=== PATIENT | female | born 1965 | race African-American/Black ===

== ENCOUNTER 2020-02-17 12:38 | Outpatient (REF) | payer MEDICAID, SELFPAY | END 2020-02-17 12:39 | disposition home or self-care (01) | LOC: HO.LAB 12:38 | PROVIDERS: Visit Provider Nurse Practitioner Family | DX: Z20.828 Contact with and (suspected) exposure to other viral communicable diseases (principal); R51.9 Headache, unspecified | CPT/HCPCS: U0003 ==

== ENCOUNTER 2024-08-27 10:36 | Outpatient (REF) | payer MEDICAID, SELFPAY ==
--- OUTSIDE RECORDS SUMMARY | 2024-08-27 11:08 | XMS_ITS ---
Author Organization [facility] Address [address] [place] [address] Care Team Providers Care Frame Maker Name Role Phone Lala Mendoza Primary Care Provider Antonette Cardenas Unavailable [phone] REASON FOR VISIT 2 month f/u Medications Medication SIG (Take, Route, Frequency, Duration) Notes Start Date End Date Status Sertraline HCl 50 MG 1 tablet Orally Onc e a day for 30 day(s) Active Advair Diskus 250-50 MCG/ACT 1 puff Inha lation Twice a day Active amLODIPine Besylate 10 MG 1 tablet Orall y Once a day for 30 day(s) Active Albuterol Sulfate 108 (90 Base) MCG/ACT 1 puff as needed Inhalation every 4 hrs Active Aspirin 81 81 MG 1 tablet Orally Once a day Active Lisinopril-hydroCHLOROthiazi de 20-12.5 MG 1 tablet Orally Once a day for 30 day(s) Active Simvastatin 40 MG 1 tablet in the even ing Orally Once a day for 30 day(s) Active Atorvastatin Calcium 40 MG 1 tablet Oral ly Once a day Active QUEtiapine Fumarate 100 MG 1 tablet at b edtime Orally Once a day Active Metoprolol Tartrate 50 MG 1 tablet with food Orally Twice a day for 30 day(s) Active Gabapentin 300 MG 1 capsule Orally Twi ce a day Active Ergocalciferol 1.25 MG (99848 UT) 1 capsule Orally Active cloNIDine HCl 0.1 MG 1 tablet Orally Thr ee a day Active Social History Tobacco Use: Social History Observation Description Date Details (start date - stop date) Former Smoker NA - NA Tobacco Use/Smoking Question Answer Notes Are you a former smoker How long has it been since you last smoked? 1-5 years Problems Problem Type SNOMED Code ICD Code Onset Dates Problem Status W/U Status Risk Notes Problem Allergic arthritis (59819965) Other specified arthritis, unspecified site (M13.80) Active confirmed Encounters Encounter Location Date Provider Diagnosis Dr Olsen [facility] [address] [place] [address] 04/24/2023 Antonette Olsen Chronic kidney disea se, stage 3a N18.31 ; Essential (primary) hypertension I10 ; Type 2 diabetes mellitus without complications E11.9 ; Unspecified osteoarthritis, unspecified site M19.90 ; Other chest pain R07.89 and Other specified arthritis, unspecified site M13.80 Assessments Encounter Date Diagnosis (ICD Code) Assessment Notes Treatment Notes Treatment Clinical Notes Section Notes 04/24/2023 Chronic kidney disease, stage 3a (ICD-10 - N18.31) GFR 53 ml/min Creatinine 1.3 mg/dl Educated patient on the impotance of controlling bs to preserve kidney function Labs ordered and u/a. Advised low sodium diet, avoid NSAID's, and will continue to monitor 04/24/2023 Essential (primary) hypertension (ICD-10 - I10) Controlled Recommend keeping bp log at home and will continue to monitor 04/24/2023 Type 2 diabetes mellitus without complications (ICD-10 - E11.9) HbA1c 6.5% Labs ordered, and educated patient on the importance of controlling blood sugar. Advised pt to increase physical activity and started pt on Farxiga 10. RTC 1 month 04/24/2023 Unspecified osteoarthritis, unspecified site (ICD-10 - M19.90) Ordered labs r/o rheumatoid arthritis( JUAN; dsDNA, rhumatoid factor, CPR ) 04/24/2023 Other chest pain (ICD-10 - R07.89) Referred to cardio to evaluation 04/24/2023 Other specified arthritis, unspecified site (ICD-10 - M13.80) Plan Of Treatment Treatment Notes Assessment Notes Chronic kidney disease, stage 3a Educated patient on the impotance of controlling bs to preserve kidney function Labs ordered and u/a. Advised low sodium diet, avoid NSAID's, and will continue to monitor Essential (primary) hypertension Recomme nd keeping bp log at home and will continue to monitor Type 2 diabetes mellitus wit hout complications Labs ordered, and educated patient on th e importance of controlling blood sugar. Advised pt to increase physical activity and started pt on Farxiga 10. RTC 1 month Other chest pain Referred to cardio t o evaluation Next Appt Details Follow Up: 4 Weeks, Reason: Progress Notes * EMILIANO LOPEZ LDOB: [birth year] (59 yo F)Acc No.[id number]:04/24/2023 Progress Notes Patient:?EMILIANO LOPEZ Provider:?Antonette Olsen MD :1965???Age:58 Y???Sex:Female D ate:04/24/2023 Address:[address] [place], [place] [id number] Pcp:Lala Mendoza Subjective: * Chief Complaints: * ???1. 2 month f/u. * HPI: ???Constitutional:? 57 y/o female patient present today for follow up. Pt c/o back pain. Pt was in the hospital ([facility]) for 3 days due to chest pain. Pt denies headaches, dizziness, shortness of breath, chest pain, abdominal pain, UTI symptoms or edema. Pt did not have further questions or concerns. 57 y/o female patient present today for follow up. Pt c/o back pain. Pt was in the hospital ([facility]) for 3 days due to chest pain. Pt denies headaches, dizziness, shortness of breath, chest pain, abdominal pain, UTI symptoms or edema. Pt did not have further questions or concerns. * ROS:?General/Constitutional:?Denies?Change in appetite.?Denies?Chills.?Denies?Fatigue.?Denies?Fever.?Denies?Headache.?Denies?L ightheadedness.?Denies?Sleep disturbance.?Denies?Weight gain.?Denies?Weight loss.? * Medical History:?Hypertensio n. * Surgical History:?Blood garcia sfusion 04/01/2020. * Hospitalization/Major Diagno stic Procedure:?[facility] Chest pain 11/23/22. * Social History:?Tobacco Use:?Tobacco Use/Smoking?Are you a?former smoker ?How long has it been since you last smoked??1-5 years * Medications:?Taking Sertrali ne HCl 50 MG Tablet 1 tablet Orally Once a day , Taking Advair Diskus 250-50 MCG/ACT Aerosol Powder Breath Activated 1 puff Inhalation Twice a day , Taking Albuterol Sulfate 108 (90 Base) MCG/ACT Aerosol Powder Breath Activated 1 puff as needed Inhalation every 4 hrs , Taking amLODIPine Besylate 10 MG Tablet 1 tablet Orally Once a day , Taking Aspirin 81 81 MG Tablet Chewable 1 tablet Orally Once a day , Taking cloNIDine HCl 0.1 MG Tablet 1 tablet Orally Three a day , Taking Ergocalciferol 1.25 MG (03693 UT) Capsule 1 capsule Orally , Taking Gabapentin 300 MG Capsule 1 capsule Orally Twice a day , Taking Metoprolol Tartrate 50 MG Tablet 1 tablet with food Orally Twice a day , Taking QUEtiapine Fumarate 100 MG Tablet 1 tablet at bedtime Orally Once a day , Taking Atorvastatin Calcium 40 MG Tablet 1 tablet Orally Once a day , Taking Simvastatin 40 MG Tablet 1 tablet in the evening Orally Once a day , Taking Lisinopril-hydroCHLOROthiazide 20-12.5 MG Tablet 1 tablet Orally Once a day Objective: * Vitals:? * Examination: ???General Examination: ?GENERAL APPEARANCE:?in no acute distress, well developed, well nourished , in no acute distress, well developed, well nourished.?HEAD:?normocephalic, atraumatic , normocephalic, atraumatic.?EYES:?pupils equal, round, reactive to light and accommodation , pupils equal, round, reactive to light and accommodation.?EARS:?normal , normal.?ORAL CAVITY:?mucosa moist , mucosa moist.?THROAT:?clear , clear.?NECK/THYROID:?neck supple, full range of motion, no cervical lymphadenopathy , neck supple, full range of motion, no cervical lymphadenopathy.?SKIN:?no suspicious lesions, warm and dry , no suspicious lesions, warm and dry.?HEART:?no murmurs, regular rate and rhythm, S1, S2 normal , no murmurs, regular rate and rhythm, S1, S2 normal.?LUNGS:?clear to auscultation bilaterally , clear to auscultation bilaterally.?ABDOMEN:?normal, bowel sounds present, soft, nontender, nondistended , normal, bowel sounds present, soft, nontender, nondistended.?EXTREMITIES:?no clubbing, cyanosis, or edema , no clubbing, cyanosis, or edema.?NEUROLOGIC:?nonfocal, motor strength normal upper and lower extremities, sensory exam intact , nonfocal, motor strength normal upper and lower extremities, sensory exam intact.? Assessment: * Assessment: 1.?Chronic kidney disease, s tage 3a - N18.31 (Primary)???Notes :GFR 53 ml/min Creatinine 1.3 mg/dl???2.?Essential (primary) hypertension - I10???Specify :ok???Notes :Controlled???3.?Type 2 diabetes mellitus without complications - E11.9???Notes :HbA1c 6.5%???4.?Unspecified osteoarthritis, unspecified site - M19.90???5.?Other chest pain - R07.89???6.?Other specified arthritis, unspecified site - M13.80??? Plan: * Treatment: 2.?Essential (primary) hyper tension? Notes: Recommend keeping bp log at home and will continue to monitor ?? 3.?Type 2 diabetes mellitus without complications? Notes: Labs ordered, and educated patient on the importance of controlling blood sugar. Advised pt to increase physical activity and started pt on Farxiga 10. RTC 1 month?? 4.?Unspecified osteoarthriti s, unspecified site? Clinical Notes: Ordered labs r/o rheumatoid arthritis( JUAN; dsDNA, rhumatoid factor, CPR ) ?? 5.?Other chest pain? Notes: Referred to cardio to evaluation?? * Procedures:?RENAL US 10/03/2021 IMPRESSION: Unremarkable renal ultrasound. RENAL US 10/03/2021 IMPRESSION: Unremarkable renal ultrasound. ? * Follow Up:?4 Weeks * Billing Information: * Visit Code:? 07436 Office Visit, Est Pt., Level 3. * Procedure Codes:? * Electronic signature of Antonette Olsen MD on 08/27/2024 at 10:08 AM CDT Sign off status: Pending * Provider:?Antonette Olsen MD Date:? 4 Generated for Printi ng/Faxing/eTransmitting on:?08/27/2024 10:08 AM CDT History and Physical Notes * Examination Category Sub-Category Detail Notes Category Not es General Examination GENERAL APPEARANCE: in no ac [place] distress, well developed, well nourished , in no acute distress, well developed, well nourished HEAD: normocephalic, atrau matic , normocephalic, atraumatic EYES: pupils equal, round, reactive to light and accommodation , pupils equal, round, reactive to light and accommodation EARS: normal , normal THROAT: clear , clear NECK/THYROID: neck supple, full ra nge of motion, no cervical lymphadenopathy , neck supple, full range of motion, no cervical lymphadenopathy HEART: no murmurs, regular rate and rhythm, S1, S2 normal , no murmurs, regular rate and rhythm, S1, S2 normal LUNGS: clear to auscultatio n bilaterally , clear to auscultation bilaterally ABDOMEN: normal, bowel sounds present, soft, nontender, nondistended , normal, bowel sounds present, soft, nontender, nondistended NEUROLOGIC: nonfocal, motor stre ngth normal upper and lower extremities, sensory exam intact , nonfocal, motor strength normal upper and lower extremities, sensory exam intact SKIN: no suspicious lesion s, warm and dry , no suspicious lesions, warm and dry EXTREMITIES: no clubbing, cyanosi s, or edema , no clubbing, cyanosis, or edema ORAL CAVITY: mucosa moist , mucos a moist
[2024-08-27 13:27] LABS: Basophils Percent Auto 0.4 % (0-2); Eosinophils Absolute Auto 0.2 X10*3/uL (0.0-0.4); Eosinophils Percent Auto 1.3 % (0-4); Hematocrit 43.3 % (37.0-47.0); Hemoglobin 15.6 g/dl (12.0-16.0); Imm Gran Abs Auto 0.04 X10*3/uL (0.00-0.03); Imm Gran Pct Auto 0.4 % (0.0-0.4); Lymphocytes Absolute Auto 2.7 X10*3/uL (1.2-4.9); Lymphocytes Percent Auto 23.6 % (20-40); MANUAL DIFF FLAG NO; Mean Corpuscular Hemoglobin 27.9 pg (27.0-33.0); Mean Corpuscular Volume 77.3 fL (80.0-98.0); Monocytes Absolute Auto 0.7 X10*3/uL (0.1-1.2); Monocytes Percent Auto 5.8 % (2-11); Neutrophils Absolute Auto 7.7 x10*3/uL (2.0-8.3); Neutrophils Percent Auto 68.5 % (45-73); Platelet Count 371 X10*3/uL (160-400); Red Cell Distribution Width 14.2 % (11.0-16.0); White Blood Count 11.3 X10*3/uL (4.8-10.8)
[2024-08-27 14:00] LABS: Microalbum/Creatinine Ratio Ur 73.4 ug/mg cr (<30)
[2024-08-27 14:01] LABS: Estimated Average Glucose 169 mg/dL; Hemoglobin A1C 237.9482 umol/L; Hemoglobin A1c % 7.5 % (<6.0); Total Hemoglobin (HGBA1C) 4104.9542 umol/L
[2024-08-27 18:24] LABS: Alanine Aminotransferase 55 U/L (0-31); Albumin Level 4.9 g/dL (3.5-5.0); Alkaline Phosphatase 81 U/L (39-117); Anion Gap 17 (12-20); Aspartate Amino Transferase 38 U/L (5-31); Bilirubin Total 0.6 mg/dL (0.0-1.0); Blood Urea Nitrogen 11 mg/dL (9-16); Calcium 10.3 mg/dL (8.4-10.2); Carbon Dioxide 29 mmol/L (22-29); Chloride 102 mmol/L (96-108); Cholesterol 194 mg/dL (<200); Estimated Glomerular Filt Rate 38; Glucose Random 172 mg/dL (60-115); HDL Cholesterol 38 mg/dL (>40); LDL Cholesterol Calculated 131 mg/dL (<100); Potassium 3.8 mmol/L (3.3-5.1); Sodium 144 mmol/L (135-145); Total Protein 8.5 g/dL (6.5-8.0); Triglycerides 129 mg/dL (<150)
[2024-08-27 18:38] LABS: Thyroid Stimulating Hormone 0.99 uIU/mL (0.32-4.0)
== END 2024-08-27 10:37 | disposition home or self-care (01) ==
LOC: HO.10HDL 10:36
PROVIDERS: Visit Provider Internal Medicine
DX: Z00.01 Encounter for general adult medical examination with abnormal findings (principal); R51.9 Headache, unspecified; N18.9 Chronic kidney disease, unspecified; J45.909 Unspecified asthma, uncomplicated; I10 Essential (primary) hypertension; H26.9 Unspecified cataract; F43.11 Post-traumatic stress disorder, acute; E78.00 Pure hypercholesterolemia, unspecified; E11.9 Type 2 diabetes mellitus without complications
CPT/HCPCS: 36415; 80053; 80061; 82043; 82570; 83036; 84443; 85025

== ENCOUNTER 2024-12-02 11:22 | Outpatient (REF) | payer MEDICAID, SELFPAY ==
[2024-12-02 13:36] LABS: Hemoglobin A1C 195.3628 umol/L; Total Hemoglobin (HGBA1C) 3863.6661 umol/L
[2024-12-02 13:54] LABS: Alanine Aminotransferase 41 U/L (0-31); Albumin Level 4.9 g/dL (3.5-5.0); Alkaline Phosphatase 89 U/L (39-117); Anion Gap 15 (12-20); Aspartate Amino Transferase 30 U/L (5-31); Blood Urea Nitrogen 13 mg/dL (9-16); Calcium 9.7 mg/dL (8.4-10.2); Carbon Dioxide 31 mmol/L (22-29); Chloride 102 mmol/L (96-108); Estimated Glomerular Filt Rate 35; Potassium 3.1 mmol/L (3.3-5.1); Sodium 145 mmol/L (135-145); Total Protein 8.3 g/dL (6.5-8.0)
[2024-12-08 16:43] LABS: Anti Nuclear Antibody Screen POSITIVE (NEGATIVE); Anti Nuclear Antibody Titer 1:80 titer
== END 2024-12-02 11:23 | disposition home or self-care (01) ==
LOC: HO.10HDL 11:22
PROVIDERS: Visit Provider Internal Medicine
DX: E11.65 Type 2 diabetes mellitus with hyperglycemia (principal); E78.00 Pure hypercholesterolemia, unspecified; E83.52 Hypercalcemia; M25.552 Pain in left hip; M79.7 Fibromyalgia; N18.9 Chronic kidney disease, unspecified; R74.01 Elevation of levels of liver transaminase levels; R80.8 Other proteinuria
CPT/HCPCS: 36415; 80053; 83036; 86038; 86039; 86200; 86431